=== PATIENT | male | born 1985 | race Caucasian/White ===

== ENCOUNTER 2017-10-25 10:34 | Emergency (ER) | payer OTHER ==
[~2017-10-25] VITALS: Ht 175.3 cm; Wt 86.2 kg
[2017-10-25 11:14] LABS: URINE BILIRUBIN NEGATIVE (Negative); URINE BLOOD NEGATIVE (Negative); URINE CLARITY CLEAR; URINE COLOR YELLOW; URINE GLUCOSE-RANDOM* NEGATIVE (Negative); URINE KETONES NEGATIVE (Negative); URINE LEUKOCYTES-REFLEX NEGATIVE (Negative); URINE NITRITE-REFLEX NEGATIVE (Negative); URINE PROTEIN (DIPSTICK) NEGATIVE (Negative); URINE SPECIFIC GRAVITY >= 1.030 (1.005-1.035); URINE UROBILINOGEN 0.2 E.U./dl (0.2-1.0)
[2017-10-25] MEDS ORDERED: IBUPROFEN 600600 M1 PO (12:23)
[2017-10-25 12:33] VITALS: BP 115/71
== END 2017-10-25 12:44 | disposition home or self-care (01) ==
LOC: ER 10:34
PROVIDERS: Physician Assistant
DX: N50.811 Right testicular pain (principal); N50.812 Left testicular pain

== ENCOUNTER 2019-05-11 15:28 | Emergency (ER) | payer OTHER ==
[~2019-05-11] VITALS: Ht 172.7 cm; Wt 84.8 kg
[~2019-05-11 15:28] MED LIST: IBUPROFEN 600600 M1 PO
[2019-05-11 15:46] LABS: ABSOLUTE NEUTROPHILS 8.6 thou/uL (1.4-8.2); EOSINOPHILS 1.2 % (0.0-3.0); HEMATOCRIT 46.3 % (42.0-52.0); HEMOGLOBIN 15.7 gm/dL (14.0-18.0); LYMPHOCYTES 22.2 % (24.0-44.0); MCH 27.2 pg (26.0-34.0); MCHC 33.9 g/dL (28.0-37.0); MCV 80.1 fL (80.0-100.0); MONOCYTES 7.4 % (1.0-8.0); PLATELET COUNT 293 thou/uL (150-400); POLYS 68.2 % (36.0-66.0); RBC 5.79 mil/uL (4.50-6.00); RDW 13.5 % (10.5-14.5); WBC 12.6 thou/uL (4.0-11.0)
[2019-05-11 15:52] LABS: ANION GAP 9 mmol/L (7-16); BUN 17 mg/dL (7-18); CHLORIDE 102 mmol/L (98-107); CO2 28 mmol/L (21-32); CREATININE 0.9 mg/dL (0.7-1.3); GLUCOSE 86 mg/dL (74-106); POTASSIUM 3.4 mmol/L (3.5-5.1); SODIUM 139 mmol/L (136-145)
[2019-05-11 16:02] LABS: ALBUMIN 4.7 g/dL (3.4-5.0); SGOT 17 U/L (15-37); SGPT 42 U/L (30-65); TOTAL BILIRUBIN 0.8 mg/dL (<0.1-1.0); TOTAL PROTEIN 8.8 g/dL (6.4-8.2); TROPONIN-I <0.06 ng/mL (<0.06)
--- NOTE | 2019-05-11 16:12 | EKG ---
[address] [address] ELECTROCARDIOGRAM REPORT Name: ARJUN TERRY Room #: [facility]#: [id number] Admission: Attend Phys: Discharge: Date of : 85 Report #: [id number] THIS REPORT FOR: //name// [facility] ED Test Date: 2019-05-11 Test Time: 15:27:48 Pat Name: ARJUN TERRY Department: Room: Gender: Power [employer] [place]: [place] : 1985 Requested By: Bowen Giordano Order Number: [id number] MD: Raad Colunga Measurements Intervals [place] Rate: 81 P: 70 NM: 150 QRS: 22 QRSD: 103 T: 30 QT: 373 QTc: 433 Interpretive Statements Sinus rhythm No previous ECG available for comparison Electronically Signed On 05-11-2019 16:11:37 [employer] WORK[employer] by Raad Colunga [email or web address] <ELECTRONICALLY SIGNED> By: Raad Colunga MD 05/11/19 1611 1527 1527 Raad Colunga MD /EPI
[2019-05-11] MEDS ORDERED: NAPROSYN500 MG PO (17:40)
[2019-05-11] MEDS ORDERED: NORFLEX100 MG PO (17:40)
[2019-05-11 17:57] VITALS: BP 125/60
== END 2019-05-11 17:55 | disposition home or self-care (01) ==
LOC: ER 15:28
PROVIDERS: Emergency Medicine
DX: M43.6 Torticollis (principal); R07.89 Other chest pain; R05 Cough